=== PATIENT | male | born 1935 | race Caucasian/White ===

== ENCOUNTER → 2016-11-28 | Outpatient (CLI) | payer OTHER, BC | LOC: CIMAGING 08:45 | PROVIDERS: ATTEND Internal Medicine | DX: R94.5 Abnormal results of liver function studies (principal) | CPT/HCPCS: 76705-PO ==

== ENCOUNTER → 2016-12-21 | Outpatient (CLI) | payer OTHER, BC | LOC: FIMAGING 15:16 | PROVIDERS: ATTEND Internal Medicine Rheumatology | DX: M19.042 Primary osteoarthritis, left hand (principal) ==